=== PATIENT | female | born 2000 | race Asian ===

== ENCOUNTER 2019-02-16 06:11 | Emergency (ER) | payer OTHER ==
[~2019-02-16] VITALS: Ht 160 cm; Wt 45.0 kg
[2019-02-16 06:15] VITALS: BP 111/76
--- NOTE | 2019-02-16 06:19 | NUR ---
PT AMBULATED TO BED 6 WITH STEADY GAIT.
--- NOTE | 2019-02-16 06:28 | NUR ---
PT C/O SOB AND C/P X 1 DAY. PT STATES SHE FEELS PRESSURE AND SHARP PAIN IN CHEST ON RIGHT SIDE. PT APPEARS TO BE IN NO DISTRESS. PT STATES PAIN IN CHEST IS WORSE WITH DEEP INSPARATION. PT LUNGS CLEAR. PT DENIES ABD PAIN. DENIES N/V/D. PT DOES NOT HAVE ANY MEDICAL HX. PT DENIES TAKING ANYTHING TO HELP PAIN. PT STATES SOME TIMES HAVING RAPID RESPIRATIONS. VSS. SKIN IS PINK/WARM/DRY; AAOX4 WITH EVEN AND STEADY GAIT; HR EVEN AND REGULAR; PT DENIES ANY FEVER, CP, SOB, OR COUGH AT THIS TIME; PATIENT STATES PAIN OF 4/10 AT THIS TIME; PATIENT POSITIONED FOR COMFORT; HOB ELEVATED; BEDRAILS UP X1; BED DOWN. ER MD MADE AWARE OF PT STATUS.
--- NOTE | 2019-02-16 06:41 | NUR ---
Dr. Rodrigues examining patient.
--- NOTE | 2019-02-16 06:53 | NUR ---
X-Ray at bedside.
--- NOTE | 2019-02-16 07:19 | NUR ---
Dr. Cedeño examining patient.
[2019-02-16 08:08] VITALS: BP 111/76
--- NOTE | 2019-02-16 08:09 | NUR ---
Patient discharged with v/s stable. Written and verbal after care instructions given and explained. Patient alert, oriented and verbalized understanding of instructions. Ambulatory with steady gait. All questions addressed prior to discharge. ID band removed. Patient advised to follow up with PMD. Rx of ativan/ albuterol given. Patient educated on indication of medication including possible reaction and side effects. Opportunity to ask questions provided and answered.
== END 2019-02-16 08:09 | disposition home or self-care (01) ==
LOC: MED 06:11
DX: F41.9 Anxiety disorder, unspecified (principal); R06.02 Shortness of breath
CPT/HCPCS: 71045; 93005; 99283; Q0092